=== PATIENT | female | born 1945 | race Caucasian/White ===

== ENCOUNTER 2016-11-19 10:59 | Outpatient (CLI) | payer OTHER ==
--- NOTE | 2016-11-23 11:13 | DIAGNOSTIC IMAGING REPORT ---
PROCEDURE: XR MAJOR JT INJ OR ASPIRATION (right shoulder). INDICATION: RT SHOULDER OSTEOARTHRITIS TECHNIQUE: The patient was advised of the usual risks and complications including infection, bleeding, and allergy. Supine RPO position. Following sterile preparation and 1% lidocaine anesthetic, fluoroscopic guidance (2.4 minutes, 358.75 mGy) was utilized to place a 22-gauge spinal needle into the ventral right glenohumeral joint. Intraarticular position was confirmed with 2 mL of Isovue 200 contrast material. Subsequently, a 6 mL solution (2 mL 40 mg/mL Kenalog, 2 mL 1% lidocaine, 2 mL 0.5% Marcaine) was infused and the needle was withdrawn. COMPARISON: Comparison is made radiographs of the right shoulder from [facility] on 11/05/2016. FINDINGS: Five AP views in neutral, internal, external rotation. Confirmation of intraarticular injection. Mild to moderate degenerative changes of the acromion, right acromioclavicular joint, and right glenohumeral joint. Arthrogram is normal. No evidence of rotator cuff tear. The patient tolerated the procedure reasonably well and was discharged home in satisfactory condition with instructions to resume routine activity the following day, and to call for any untoward symptoms (increasing pain/swelling). IMPRESSION: 1. Successful fluoroscopically guided therapeutic injection of the right glenohumeral joint. 2. Mild to moderate degenerative changes of the right shoulder. 3. Findings discussed with Dr. Graham.
== END 2016-11-19 23:00 ==
LOC: XR SRH 10:59
PROC: BP181ZZ Fluoroscopy of Right Shoulder using Low Osmolar Contrast (ICD-10-PCS; principal; 2016-11-19)
PROC: 3E0U3GC Introduction of Other Therapeutic Substance into Joints, Percutaneous Approach (ICD-10-PCS; principal; 2016-11-19)
DX: M19.011 Primary osteoarthritis, right shoulder (principal)
CPT/HCPCS: 82445

== ENCOUNTER 2017-05-05 12:43 | Outpatient (CLI) | payer OTHER ==
--- NOTE | 2017-05-06 09:04 | DIAGNOSTIC IMAGING REPORT ---
REFERRING PHYSICIAN/PROVIDER: Dr. Graham [employer] OFFICER: Zaheer Lira MD PROCEDURE: 2D echo, M-mode and complete color and flow Doppler interrogation TECHNICAL QUALITY: Adequate INDICATION: AORTIC VALVE STENOSIS INTERPRETATIONS: CHAMBERS: LEFT ATRIUM: Normal left atrial size. LEFT VENTRICLE: Normal left ventricular size, wall thickness and systolic function. EF visually estimated to be 65-70%. No wall motion abnormalities. Indeterminate diastolic function. RIGHT ATRIUM: Normal right atrial size. RIGHT VENTRICLE: Normal right ventricular size and systolic function. VALVES: All valves nonrheumatic unless otherwise indicated. AORTIC VALVE: Individual aortic valve leaflets not seen well. Mild aortic stenosis with peak velocity 2.4 m/s, mean gradient 12 mmHg, and calculated aortic valve area 1.4 cm2. No aortic regurgitation. MITRAL VALVE: Mitral annular calcification. No mitral stenosis. Trace mitral regurgitation. TRICUSPID VALVE: Trace tricuspid regurgitation. Estimated pulmonary artery systolic pressure is 11 mmHg. PULMONIC VALVE: No pulmonic regurgitation. MISCELLANEOUS: No pericardial effusion. HEMODYNAMICS: CVP is 3 mmHg. IMPRESSION: 1. Normal left ventricular size and systolic function, EF visually estimated to be 65-70%. No wall motion abnormalities. 2. Indeterminate diastolic function. 3. Mild aortic stenosis with peak velocity 2.4 m/s, mean gradient 12 mmHg, and calculated aortic valve area of 1.4 cm2. 4. Normal right ventricular size and systolic function. 5. Estimated pulmonary artery systolic pressure is 11 mmHg.
== END 2017-05-05 23:00 ==
LOC: US SRH 12:43
DX: I35.0 Nonrheumatic aortic (valve) stenosis (principal)